=== PATIENT | male | born 1940 | race Caucasian/White ===

== ENCOUNTER 2016-07-24 15:02 | Outpatient (CLI) | payer MEDICARE, OTHER | END 2016-07-24 15:03 | disposition home or self-care (01) | DX: B35.1 Tinea unguium (principal); Z79.899 Other long term (current) drug therapy ==

== ENCOUNTER 2016-09-04 16:32 | Outpatient (CLI) | payer MEDICARE, OTHER ==
[2016-09-04 16:54] LABS: CREATININE 0.9 mg/dL (0.6-1.2)
== END 2016-09-04 16:33 | disposition home or self-care (01) ==
LOC: LAB 16:32
PROVIDERS: ATTEND Nurse Practitioner Family
DX: B35.1 Tinea unguium (principal); Z79.899 Other long term (current) drug therapy
CPT/HCPCS: 36415; 82565; 84450; 84460

== ENCOUNTER 2017-08-23 17:01 | Outpatient (CLI) | payer MEDICARE, OTHER ==
--- NOTE | 2017-08-24 07:00 | Ultrasound Report ---
EXAM: LEFT LOWER EXTREMITY VENOUS ULTRASOUND EXAM DATE: 08/23/2017 06:03 PM. CLINICAL HISTORY: SUPERFICIAL THROMBOPHLEBITIS. COMPARISON: None. TECHNIQUE: Real-time sonographic vascular imaging was performed by the product safety engineer through the lower extremity utilizing both color-flow and Doppler spectral analysis. Multiple representative personal service static diego ges were saved for review. FINDINGS: Common Femoral Vein (CFV): Normal. CFV-GSV Junction: Normal. Profunda Femoral Vein (PFV): Normal. Femoral Vein (FV) Prox: Normal. Femoral Vein (FV) Mid: Normal. Femoral Vein (FV) Dist: Normal. Popliteal Vein: Normal. Posterior Tibial Veins: Normal. Peroneal Veins: Normal. Contralateral Side CFV: Normal. Other: Thrombus in the lesser saphenous vein from popliteal area down into the calf IMPRESSION: 1. No evidence for deep venous thrombosis. 2. Thrombus in the superficial lesser saphenous vein [facility] Referring Provider Line: [phone] SITE ID: [id number]
== END 2017-08-23 17:02 | disposition home or self-care (01) ==
LOC: DI 17:01
PROVIDERS: ATTEND Family Medicine
DX: I82.812 Embolism and thrombosis of superficial veins of left lower extremity (principal)

== ENCOUNTER 2019-03-17 16:28 | Outpatient (CLI) | payer MEDICARE, OTHER ==
--- NOTE | 2019-03-19 01:03 | XRAY Report ---
Reason: PAINFUL 4TH MP JT L FOOT Procedure Date: 03/17/2019 Accession Number: [id number] / [id number] Procedure: XR - Foot 3 View LT CPT Code: Final Report FULL RESULT: EXAM: LEFT FOOT RADIOGRAPHY EXAM DATE: 03/17/2019 04:40 PM. CLINICAL HISTORY: PAINFUL 4TH MP JT L FOOT. COMPARISON: None. TECHNIQUE: 3 views. FINDINGS: The osseous structures are intact and well-aligned. No focal soft tissue swelling or demineralization is seen. No retained radiopaque foreign body is seen. IMPRESSION: No acute osseous abnormality. No radiographic abnormality in the region of the fourth metatarsophalangeal joint as clinically queried. [facility]
== END 2019-03-17 16:29 | disposition home or self-care (01) ==
LOC: DI 16:28
PROVIDERS: ATTEND Podiatrist
DX: M25.572 Pain in left ankle and joints of left foot (principal)

== ENCOUNTER 2019-09-06 18:20 | Outpatient (CLI) | payer MEDICARE, OTHER | END 2019-09-06 18:21 | disposition home or self-care (01) | LOC: COV 18:20 | PROVIDERS: ATTEND Family Medicine | DX: R05 Cough (principal); R43.9 Unspecified disturbances of smell and taste; R53.83 Other fatigue | CPT/HCPCS: 81599 ==

== ENCOUNTER 2020-07-10 09:19 | Outpatient (CLI) | payer MEDICARE, OTHER ==
[2020-07-10 09:36] LABS: BASOPHILS % (AUTO) 0.7 %; EOSINOPHILS # (AUTO) 0.6 10^3/uL (0.0-0.7); EOSINOPHILS % (AUTO) 9.8 %; HCT - HEMATOCRIT 44.9 % (42.0-52.0); HGB - HEMOGLOBIN 14.8 g/dL (14.0-18.0); LYMPHOCYTES # (AUTO) 1.9 10^3/uL (1.5-3.5); LYMPHOCYTES % (AUTO) 31.5 %; MEAN CORPUSCULAR HEMOGLOBIN 29.1 pg (27.0-31.0); MEAN CORPUSCULAR VOLUME 88.2 fL (80.0-94.0); MEAN PLATELET VOLUME 8.8 fL (7.4-11.4); MONOCYTES # (AUTO) 0.5 10^3/uL (0.0-1.0); MONOCYTES % (AUTO) 8.8 %; NEUTROPHILS # (AUTO) 2.9 10^3/uL (1.5-6.6); PLT - PLATELET COUNT 277 10^3/uL (130-450); RED BLOOD COUNT 5.09 10^6/uL (4.70-6.10); RED CELL DISTRIBUTION WIDTH 14.2 % (12.0-15.0); WHITE BLOOD COUNT 5.9 x10^3/uL (4.8-10.8)
[2020-07-10 09:56] LABS: ALBUMIN/GLOBULIN RATIO 1.3 (1.0-2.2); ALKALINE PHOSPHATASE 64 IU/L (42-121); ALT ALANINE AMINOTRANSFERASE 21 IU/L (10-60); AST ASPARTATE AMINOTRANSFERASE 21 IU/L (10-42); BILIRUBIN,TOTAL 0.9 mg/dL (0.2-1.0); BUN - BLOOD UREA NITROGEN 23 mg/dL (6-20); CARBON DIOXIDE - CO2 26 mmol/L (21-32); CHLORIDE 103 mmol/L (101-111); CHOL/HDL RATIO 5.7 (<5.0); CHOLESTEROL 273 mg/dL; GFR - MDRD 72 (>89); GLUCOSE 99 mg/dL (70-100); HDL CHOLESTEROL 48 mg/dL; LDL CHOLESTEROL,CALCULATED 193 mg/dL; POTASSIUM 4.2 mmol/L (3.5-5.0); SODIUM 140 mmol/L (135-145); TOTAL PROTEIN 7.2 g/dL (6.7-8.2); TRIGLYCERIDES 160 mg/dL; VLDL CHOLESTEROL 32 mg/dL
[2020-07-13 20:37] LABS: FREE TESTOSTERONE 51.3 pg/mL (30.0-135.0)
== END 2020-07-10 09:20 | disposition home or self-care (01) ==
LOC: LAB 09:19
PROVIDERS: ATTEND Internal Medicine
DX: E78.5 Hyperlipidemia, unspecified (principal); R53.83 Other fatigue; Z79.899 Other long term (current) drug therapy
CPT/HCPCS: 36415; 80053; 80061; 83721; 84270; 84402; 84403; 85025

== ENCOUNTER 2020-12-26 15:05 | Outpatient (CLI) | payer MEDICARE, OTHER ==
[2020-12-26 18:22] LABS: ALBUMIN 4.3 g/dL (3.2-5.5); ALBUMIN/GLOBULIN RATIO 1.3 (1.0-2.2); BILIRUBIN,TOTAL 0.6 mg/dL (0.2-1.0); CALCIUM 9.4 mg/dL (8.5-10.3); POTASSIUM 4.4 mmol/L (3.5-5.0); TOTAL PROTEIN 7.7 g/dL (6.7-8.2)
== END 2020-12-26 23:59 | disposition home or self-care (01) ==
LOC: LAB.N 15:05
PROVIDERS: ATTEND Family Medicine
DX: R03.0 Elevated blood-pressure reading, without diagnosis of hypertension (principal)
CPT/HCPCS: 36415; 80053

== ENCOUNTER 2021-03-16 08:31 | Outpatient (CLI) | payer MEDICARE, OTHER ==
[2021-03-16 08:48] LABS: BASOPHILS % (AUTO) 0.4 %; EOSINOPHILS # (AUTO) 0.5 10^3/uL (0.0-0.7); EOSINOPHILS % (AUTO) 7.4 %; HCT - HEMATOCRIT 46.3 % (42.0-52.0); HGB - HEMOGLOBIN 15.1 g/dL (14.0-18.0); LYMPHOCYTES % (AUTO) 29.1 %; MEAN CORPUSCULAR HEMOGLOBIN 28.8 pg (27.0-31.0); MEAN CORPUSCULAR HGB CONC 32.6 g/dL (32.0-36.0); MEAN CORPUSCULAR VOLUME 88.4 fL (80.0-94.0); MEAN PLATELET VOLUME 8.6 fL (7.4-11.4); MONOCYTES # (AUTO) 0.7 10^3/uL (0.0-1.0); MONOCYTES % (AUTO) 10.2 %; NEUTROPHILS # (AUTO) 3.6 10^3/uL (1.5-6.6); NEUTROPHILS % (AUTO) 52.8 %; PLT - PLATELET COUNT 311 10^3/uL (130-450); RED BLOOD COUNT 5.24 10^6/uL (4.70-6.10); WHITE BLOOD COUNT 6.9 x10^3/uL (4.8-10.8)
[2021-03-16 09:07] LABS: CHOL/HDL RATIO 6.2 (<5.0); CHOLESTEROL 262 mg/dL; HDL CHOLESTEROL 42 mg/dL; LDL CHOLESTEROL,CALCULATED 178 mg/dL; LDL/HDL RATIO 4.2 (<3.6); TRIGLYCERIDES 209 mg/dL; VLDL CHOLESTEROL 42 mg/dL
== END 2021-03-16 08:32 | disposition home or self-care (01) ==
LOC: LAB 08:31
PROVIDERS: ATTEND Internal Medicine
DX: E78.5 Hyperlipidemia, unspecified (principal); Z79.899 Other long term (current) drug therapy
CPT/HCPCS: 36415; 80061; 83721; 85025

== ENCOUNTER 2022-01-27 13:58 | Emergency (ER) | payer MEDICARE, OTHER ==
--- NOTE | 2022-01-27 14:16 | ED Physician Documentation ---
PD HPI HEENT - Stated complaint Stated Complaint: DIZZINESS - Chief complaint Chief Complaint: Neuro - History obtained from History obtained from: Patient - History of Present Illness Timing - onset: How many days ago (2) Timing - duration: Days (2) Timing - details: Gradual onset, Intermittant (noted with lying flat and with positional change (getting up, turning head). Feels okay once standing. Slight off balance when first standing, but then improved. No associated vision changes, headache, focal weakness, URI, congestion.) Location: Other (vertigo with head movement and position.) Associated symptoms: No: Fever, Congestion, Headache, Cough Similar symptoms before: Has not had sx before Recently seen: Not recently seen Review of Systems Constitutional: denies: Fever, Chills Eyes: denies: Loss of vision, Decreased vision Ears: denies: Loss of hearing, Tinnitus/ringing Nose: denies: Rhinorrhea / runny nose, Congestion Throat: denies: Sore throat Respiratory: denies: Cough Skin: denies: Rash, Lesions Neurologic: denies: Focal weakness, Numbness, Altered mental status PD PAST MEDICAL HISTORY - Past Medical History Cardiovascular: High cholesterol Respiratory: None Endocrine/Autoimmune: None GI: None : Incontinence HEENT: Chronic hearing loss Musculoskeletal: Osteoarthritis Derm: None, Eczema - Past Surgical History Past Surgical History: Yes General: Appendectomy, Colonoscopy Ortho: Rotator cuff repair, Arthroscopic surgery HEENT: Tonsil/Adenoidectomy - Present Medications Home Medications: Ambulatory Orders Medication Instructions Recorded Confirmed Meclizine HCl [Motion Sickness] 25 mg PO Q6H PRN #30 tablet 01/27/22 Multivitamin with Minerals 1 each PO DAILY 01/27/22 01/27/22 [Multivitamins with Minerals] [place]-3/Dha/Epa/Fish Oil [Fish Oil 1 each PO DAILY 01/27/22 01/27/22 1,000 mg Softgel] dexAMETHasone [Decadron] 4 mg PO DAILY #5 tablet 01/27/22 - Allergies Allergies/Adverse Reactions: Allergies Allergy/AdvReac Type Severity Reaction Status Date / Time No Known Drug Allergies Allergy Verified 01/27/22 14:06 - Social History Does the pt smoke?: No Smoking Status: Never smoker Does the pt drink ETOH?: No Does the pt have substance abuse?: No - Immunizations Immunizations are current?: Yes PD ED PE NORMAL - Vitals Vital signs reviewed: Yes - General General: Alert and oriented X 3, No acute distress, Well developed/nourished - HEENT HEENT: Atraumatic, PERRL, EOMI (no nystagmus at rest. Mario-Halpike created mild brief vertigo. Supine roll test to the right created notable vertigo with brief nystagmus. This dampened quickly. ), Ears normal (hearing aids in both ears. Canals appear normal. ), Moist mucous membranes, Pharynx benign - Neck Neck: Supple, no meningeal sign, No adenopathy, No bruit - Cardiac Cardiac: RRR, No murmur - Respiratory Respiratory: Clear bilaterally - Abdomen Abdomen: Soft, Non tender - Back Back: No CVA TTP - Derm Derm: Normal color, Warm and dry - Neuro Neuro: Alert and oriented X 3, physiology teacher 2-12 intact, No motor deficit, No sensory deficit, Normal speech, Other ([place]-Halpike did not provoke distinct vertigo but the supine roll test did to the right. No persistent nystagmus to attempt HINTS. Normal hearing finger rub. ) Eye Opening: Spontaneous Motor: Obeys Commands Verbal: Oriented GCS Score: 15 Results - Vitals Vitals: Vital Signs - 24 hr 01/27/22 01/27/22 01/27/22 14:07 14:10 15:48 Temperature 36.2 C L 36.5 C 36.5 C Heart Rate 49 L 49 L 56 L Respiratory 16 16 16 Rate Blood Pressure 147/71 H 147/71 H 130/70 O2 Saturation 97 97 98 Oxygen O2 Source Room air - Labs Labs: Laboratory Tests 01/27/22 01/27/22 15:00 15:00 WBC 6.7 RBC 4.93 Hgb 14.4 Hct 43.2 MCV 87.6 MCH 29.2 MCHC 33.3 RDW 14.3 Plt Count 274 MPV 8.7 Neut # (Auto) 3.8 Lymph # (Auto) 1.9 [facility] # (Auto) 0.5 Eos # (Auto) 0.4 Baso # (Auto) 0.0 Absolute Nucleated RBC 0.00 Nucleated RBC % 0.0 Sodium 139 Potassium 4.3 Chloride 103 Carbon Dioxide 28 Anion Gap 8.0 BUN 19 Creatinine 0.9 Estimated GFR (MDRD) 81 L Glucose 92 Calcium 9.0 Magnesium 2.3 Total Bilirubin 0.6 AST 21 ALT 22 Alkaline Phosphatase 59 Total Protein 6.9 Albumin 3.9 Globulin 3.0 Albumin/Globulin Ratio 1.3 Lipase 31 PD MEDICAL DECISION MAKING - ED course Complexity details: reviewed results, re-evaluated patient (no focal deficits and has supine roll test provoke vertigo, c/w peripheral cause. ), considered differential (Positional vertigo for couple of days. No other focal neurologic symptoms no visual change. He is positive on the supine roll test but not the Mario-Hallpike. Consistent with BPPV or labyrinthitis.), d/w patient Departure - Departure Disposition: Home, Self Care Clinical Impression: Peripheral vertigo Qualifiers: Laterality: right Qualified Code(s): H81.391 - Other peripheral vertigo, right ear Condition: Stable Record reviewed to determine appropriate education?: Yes Instructions: ED Vertigo Unspecified Follow-Up: [facility] [Provider Group] Prescriptions: dexAMETHasone [Decadron] 4 mg PO DAILY #5 tablet Meclizine HCl [Motion Sickness] 25 mg PO Q6H PRN #30 tablet PRN Reason: Vertigo Comments: Your symptoms are consistent with a inner ear/peripheral cause of vertigo. Your blood count, blood sugar and electrolytes are good on blood testing. I would suggest trying some anti-inflammatory daily for the next several days and also meclizine motion sickness medicine 2-3 times daily over the next 3 to 5 days as well. This should help with symptoms and decrease the process. Avoid positions and activities that bother you and get up and turn slowly. Recheck if not improving well over the next couple of days. If persistent symptoms, your primary care could potentially initiate some physical therapy maneuvers/referral to help with some of the positional vertigo symptoms. Commonly this should improve with the motion sickness medicine and anti- inflammatories as there can be fluid congestion or inflammation causing the symptoms as well. Follow-up or return to the ER if you have other associated symptoms develop such as vision changes, trouble speaking, localized weakness, other concerns. I sent your scripts to the [facility] pharmacy. Discharge Date/Time: 01/27/22 15:48
[2022-01-27] MEDS ORDERED: MECLIZINE 12.5 MG TABLET PO STA (14:53)
[2022-01-27 15:04] LABS: BASOPHILS % (AUTO) 0.4 %; EOSINOPHILS # (AUTO) 0.4 10^3/uL (0.0-0.7); EOSINOPHILS % (AUTO) 5.4 %; HCT - HEMATOCRIT 43.2 % (42.0-52.0); HGB - HEMOGLOBIN 14.4 g/dL (14.0-18.0); LYMPHOCYTES # (AUTO) 1.9 10^3/uL (1.5-3.5); LYMPHOCYTES % (AUTO) 29.1 %; MEAN CORPUSCULAR HEMOGLOBIN 29.2 pg (27.0-31.0); MEAN CORPUSCULAR HGB CONC 33.3 g/dL (32.0-36.0); MEAN CORPUSCULAR VOLUME 87.6 fL (80.0-94.0); MEAN PLATELET VOLUME 8.7 fL (7.4-11.4); MONOCYTES # (AUTO) 0.5 10^3/uL (0.0-1.0); MONOCYTES % (AUTO) 7.8 %; NEUTROPHILS # (AUTO) 3.8 10^3/uL (1.5-6.6); NEUTROPHILS % (AUTO) 57.2 %; PLT - PLATELET COUNT 274 10^3/uL (130-450); RED BLOOD COUNT 4.93 10^6/uL (4.70-6.10); RED CELL DISTRIBUTION WIDTH 14.3 % (12.0-15.0); WHITE BLOOD COUNT 6.7 x10^3/uL (4.8-10.8)
[2022-01-27 15:17] LABS: ALBUMIN 3.9 g/dL (3.2-5.5); ALBUMIN/GLOBULIN RATIO 1.3 (1.0-2.2); BILIRUBIN,TOTAL 0.6 mg/dL (0.2-1.0); CREATININE 0.9 mg/dL (0.6-1.2); MAGNESIUM 2.3 mg/dL (1.7-2.8); POTASSIUM 4.3 mmol/L (3.5-5.0); TOTAL PROTEIN 6.9 g/dL (6.7-8.2)
[2022-01-27] MEDS ORDERED: DEXAMETHASONE 10 MG/ML VIAL PO STA (15:31)
[2022-01-27] MEDS ORDERED: CHERRY SYRUP 10 ML UDC PO ONE (15:31)
[2022-01-27 15:49] VITALS: BP 130/70
== END 2022-01-27 15:48 | disposition home or self-care (01) ==
LOC: ED 13:58
DX: H81.391 Other peripheral vertigo, right ear (principal)
CPT/HCPCS: 36415; 80053; 83690; 83735; 85025; 99282; 99283; A9270

== ENCOUNTER 2022-09-16 15:18 | Emergency (ER) | payer MEDICARE, OTHER ==
--- NOTE | 2022-09-16 15:34 | ED Physician Documentation ---
PD HPI CHEST PAIN - Stated complaint Stated Complaint: CHEST PX - History obtained from History obtained from: Patient - Additional information Additional information: 82-year-old gentleman with no history of heart problems. He had chest pain most of the morning 2 mornings ago. It was a substernal chest pain and tightness. It is gone away since. It was not associate with shortness of breath, nausea, dizziness, or sweats. Other than his age he really does not have any risk factors for coronary issues. No cough. No recent travel. No pedal edema or calf pain. No radiation to the back. He is pain-free now. PD PAST MEDICAL HISTORY - Past Medical History Cardiovascular: High cholesterol Respiratory: None Endocrine/Autoimmune: None GI: None : Incontinence HEENT: Chronic hearing loss Musculoskeletal: Osteoarthritis Derm: None, Eczema - Past Surgical History Past Surgical History: Yes General: Appendectomy, Colonoscopy Ortho: Rotator cuff repair, Arthroscopic surgery HEENT: Tonsil/Adenoidectomy - Present Medications Home Medications: Ambulatory Orders Medication Instructions Recorded Confirmed Multivitamin with Minerals 1 each PO DAILY 01/27/22 09/16/22 [Multivitamins with Minerals] [place]-3/Dha/Epa/Fish Oil [Fish Oil 1 each PO DAILY 01/27/22 09/16/22 1,000 mg Softgel] - Allergies Allergies/Adverse Reactions: Allergies Allergy/AdvReac Type Severity Reaction Status Date / Time No Known Drug Allergies Allergy Verified 09/16/22 15:33 - Social History Does the pt smoke?: No Smoking Status: Never smoker Does the pt drink ETOH?: No Does the pt have substance abuse?: No - Immunizations Immunizations are current?: Yes PD ED PE NORMAL - Vitals Vital signs reviewed: Yes - General General: Alert and oriented X 3, No acute distress - HEENT HEENT: PERRL, EOMI - Neck Neck: Supple, no meningeal sign, No bony TTP - Cardiac Cardiac: No murmur, Other (Occasional extrasystoles corresponding to PVCs in the monitor) - Respiratory Respiratory: No respiratory distress, Clear bilaterally - Abdomen Abdomen: Non tender - Extremities Extremities: No edema, No calf tenderness / cord - Neuro Neuro: Alert and oriented X 3, Normal speech Results - Vitals Vitals: Vital Signs - 24 hr 09/16/22 15:30 Temperature 36.6 C Heart Rate 87 Respiratory 16 Rate Blood Pressure 148/82 H O2 Saturation 98 Oxygen O2 Source Room air - EKG (time done) 1526 EKG releavant findings:: EKG personally interpreted by author of this note. Relevant findings are: Rate: Rate (enter#) (90) Rhythm: NSR (w pvcs) Intervals: Prolonged MN, Other (lafb) Ischemia: Non specific changes. No: ST elevation c/w ischemia, ST depression - Labs Labs: Laboratory Tests 09/16/22 09/16/22 09/16/22 15:40 15:40 15:40 WBC 7.4 RBC 5.20 Hgb 14.3 Hct 44.1 MCV 84.8 MCH 27.5 MCHC 32.4 RDW 14.4 Plt Count 326 MPV 8.7 Neut # (Auto) 5.1 Lymph # (Auto) 1.5 [place] # (Auto) 0.5 Eos # (Auto) 0.3 Baso # (Auto) 0.0 Absolute Nucleated RBC 0.00 Nucleated RBC % 0.0 Sodium 141 Potassium 3.9 Chloride 106 Carbon Dioxide 25 Anion Gap 10.0 BUN 19 Creatinine 1.0 Estimated GFR (MDRD) 71 L Glucose 112 H Calcium 9.2 Total Bilirubin 0.4 AST 22 ALT 20 Alkaline Phosphatase 64 Troponin I High Sens 7.0 Total Protein 7.1 Albumin 3.7 Globulin 3.4 Albumin/Globulin Ratio 1.1 Lipase 32 - Rads (name of study) 1v cxr Relevant Findings:: Final report received, EMP independent interpretation of test PD Medical Decision Making - ED course ED course: 82-year-old gentleman who had chest pain 2 days ago but has been resolved since then with negative biomarkers and EKG. Heart score 3. Nothing in the history or physical to suggest dissection, PE, pneumonia. Departure - Departure Disposition: Home, Self Care Clinical Impression: Chest pain Condition: Good Record reviewed to determine appropriate education?: Yes Instructions: ED Chest Pain NonCardiac Comments: Return immediately if you develop develop recurrent chest pain. Otherwise follow-up with your primary care physician and discuss stress testing.
[2022-09-16 15:46] LABS: BASOPHILS % (AUTO) 0.4 %; EOSINOPHILS # (AUTO) 0.3 10^3/uL (0.0-0.7); EOSINOPHILS % (AUTO) 3.5 %; HCT - HEMATOCRIT 44.1 % (42.0-52.0); HGB - HEMOGLOBIN 14.3 g/dL (14.0-18.0); LYMPHOCYTES # (AUTO) 1.5 10^3/uL (1.5-3.5); LYMPHOCYTES % (AUTO) 19.6 %; MEAN CORPUSCULAR HEMOGLOBIN 27.5 pg (27.0-31.0); MEAN CORPUSCULAR HGB CONC 32.4 g/dL (32.0-36.0); MEAN CORPUSCULAR VOLUME 84.8 fL (80.0-94.0); MEAN PLATELET VOLUME 8.7 fL (7.4-11.4); MONOCYTES # (AUTO) 0.5 10^3/uL (0.0-1.0); MONOCYTES % (AUTO) 7.3 %; NEUTROPHILS # (AUTO) 5.1 10^3/uL (1.5-6.6); NEUTROPHILS % (AUTO) 69.1 %; PLT - PLATELET COUNT 326 10^3/uL (130-450); RED CELL DISTRIBUTION WIDTH 14.4 % (12.0-15.0); WHITE BLOOD COUNT 7.4 x10^3/uL (4.8-10.8)
--- NOTE | 2022-09-16 15:52 | XRAY Report ---
PROCEDURE: Chest 1 View X-Ray INDICATIONS: Chest Pain TECHNIQUE: One view of the chest was acquired. COMPARISON: None. FINDINGS: Surgical changes and devices: None. Lungs and pleura: No pleural effusions or pneumothorax. Lungs are clear. Mediastinum: Mediastinal contours appear normal. Heart size is normal. Bones and chest wall: No suspicious bony lesions. Overlying soft tissues appear unremarkable. IMPRESSION: No acute cardiopulmonary process. Reviewed by: Kwasi Wilkerson on 09/16/2022 2:51 PM AKDT Approved by: Kwasi Wilkerson on 09/16/2022 2:51 PM AKDT Station ID: [id number]
[2022-09-16 15:59] LABS: ALBUMIN 3.7 g/dL (3.2-5.5); ALBUMIN/GLOBULIN RATIO 1.1 (1.0-2.2); BILIRUBIN,TOTAL 0.4 mg/dL (0.2-1.0); CALCIUM 9.2 mg/dL (8.5-10.3); POTASSIUM 3.9 mmol/L (3.5-5.0); TOTAL PROTEIN 7.1 g/dL (6.7-8.2)
[2022-09-16 16:23] VITALS: BP 120/77
== END 2022-09-16 16:27 | disposition home or self-care (01) ==
LOC: ED 15:18
DX: R07.9 Chest pain, unspecified (principal)
CPT/HCPCS: 36415; 80053; 83690; 84484; 85025; 93005; 99284

== ENCOUNTER 2022-12-22 10:02 | Outpatient (CLI) | payer MEDICARE, OTHER ==
--- NOTE | 2022-12-22 11:43 | Ultrasound Report ---
PROCEDURE: Abdomen Limited INDICATIONS: DIASTISIS RECTI TECHNIQUE: Real-time focused scanning was performed of the abdomen, with image documentation. COMPARISONS: None. FINDINGS: No focal abdominal wall fascial defect. No hernia at rest or during Valsalva maneuver. Per report, di astases recti is present. This is best demonstrated by cross-sectional imaging. IMPRESSION: 1. No sonographic evidence of ventral abdominal wall midline hernia. Reviewed by: Massiel Sood MD on 12/22/2022 11:41 AM PDT Approved by: Massiel Sood MD on 12/22/2022 11:41 AM PDT Station ID: [id number]
== END 2022-12-22 10:03 | disposition home or self-care (01) ==
LOC: DI 10:02
PROVIDERS: ATTEND Nurse Practitioner
DX: M62.08 Separation of muscle (nontraumatic), other site (principal)

== ENCOUNTER 2023-01-27 09:45 | Outpatient (CLI) | payer MEDICARE, OTHER ==
[2023-01-27 10:02] LABS: BASOPHILS % (AUTO) 0.5 %; EOSINOPHILS # (AUTO) 0.3 10^3/uL (0.0-0.7); EOSINOPHILS % (AUTO) 5.7 %; HCT - HEMATOCRIT 45.1 % (42.0-52.0); HGB - HEMOGLOBIN 14.7 g/dL (14.0-18.0); LYMPHOCYTES # (AUTO) 1.7 10^3/uL (1.5-3.5); MEAN CORPUSCULAR HEMOGLOBIN 28.3 pg (27.0-31.0); MEAN CORPUSCULAR HGB CONC 32.6 g/dL (32.0-36.0); MEAN CORPUSCULAR VOLUME 86.7 fL (80.0-94.0); MEAN PLATELET VOLUME 8.5 fL (7.4-11.4); MONOCYTES # (AUTO) 0.6 10^3/uL (0.0-1.0); MONOCYTES % (AUTO) 9.6 %; NEUTROPHILS # (AUTO) 3.3 10^3/uL (1.5-6.6); PLT - PLATELET COUNT 289 10^3/uL (130-450); RED CELL DISTRIBUTION WIDTH 14.5 % (12.0-15.0)
[2023-01-27 10:17] LABS: ALBUMIN 4.3 g/dL (3.2-5.5); ALBUMIN/GLOBULIN RATIO 1.6 (1.0-2.2); ALKALINE PHOSPHATASE 67 IU/L (42-121); ALT ALANINE AMINOTRANSFERASE 17 IU/L (10-60); AST ASPARTATE AMINOTRANSFERASE 17 IU/L (10-42); BILIRUBIN,TOTAL 0.5 mg/dL (0.2-1.0); BUN - BLOOD UREA NITROGEN 16 mg/dL (6-20); CALCIUM 9.4 mg/dL (8.5-10.3); CARBON DIOXIDE - CO2 30 mmol/L (21-32); CHLORIDE 104 mmol/L (101-111); CHOL/HDL RATIO 4.9 (<5.0); CHOLESTEROL 244 mg/dL; CREATININE 1.1 mg/dL (0.6-1.3); GFR - MDRD 64 (>89); GLUCOSE 93 mg/dL (74-104); HDL CHOLESTEROL 50 mg/dL; LDL CHOLESTEROL,CALCULATED 164 mg/dL; LDL/HDL RATIO 3.3 (<3.6); POTASSIUM 4.4 mmol/L (3.5-4.5); SODIUM 139 mmol/L (135-145); TRIGLYCERIDES 150 mg/dL (48-352); VLDL CHOLESTEROL 30 mg/dL
[2023-01-27 10:31] LABS: THYROID STIMULATING HORMONE 4.19 uIU/mL (0.34-5.60)
[2023-01-27 12:56] LABS: ESTIMATED AVERAGE GLUCOSE 123 mg/dL (70-100); HEMOGLOBIN A1c% 5.9 % (4.27-6.07)
== END 2023-01-27 09:46 | disposition home or self-care (01) ==
LOC: LAB 09:45
PROVIDERS: ATTEND Nurse Practitioner
DX: E78.5 Hyperlipidemia, unspecified (principal); R53.83 Other fatigue; R73.03 Prediabetes
CPT/HCPCS: 36415; 80053; 80061; 82607; 83036; 83721; 84443; 85025

== ENCOUNTER 2023-03-16 07:50 | Outpatient (CLI) | payer MEDICARE, OTHER ==
--- NOTE | 2023-03-16 08:03 | CARDIAC PROCEDURE NOTE ---
Stress Test Report Service Date: 03/16/23 Service Time: 08:00 Ordering Provider: Brunilda Blanchard ARNP Indication for Test: Assess chest discomfort. Significant Medical History: Sukhdev is referred for a treadmill stress echocardiogram, to evaluate intermittent episodes of lower chest/epigastric discomfort, one of which was significant enough to prompt an Emergency Department visit here at [facility], where troponin was negative. His EKG was notable for first-degree AV block, left anterior fascicular block and two PVCs on the 12-second recording, but no Q waves or STT abnormalities. He was subsequently started on omeprazole for presumed GI origin of the pain. He says that the episodes may have become less frequent thereafter, though they persist intermittently. His discomfort typically occurs at night upon lying down to go to sleep. He does not see any correlation with diet. He remains very active, walking on his treadmill at home periodically, walking his dog every day for at [place] and vigorous activities such as splitting and stacking firewood. His stamina remains excellent, as he is able to work for up to 2 hours before resting. He has not had exertional chest discomfort, unexpected shortness of breath, nausea or diaphoresis. In the past he has been noted to have bradycardia, occasional orthostatic vital signs and vertigo, but he denies recent palpitations or lightheadedness. He is under evaluation for possible sleep apnea. In January he had a fasting lipid panel revealing Total Cholesterol 244, LDL-c 164, HDL-c 50 and TG 150. Cardiac Risk Factors: Positive for hypertension (treated for approximately 6 months), hyperlipidemia (not treated) and "pre-diabetes"; no history of tobacco smoking ever and no known family history of coronary heart disease. Type of Stress Test: ETT with Echocardiography Procedure: -Exercise Treadmill Test- After signing informed consent, the patient underwent echo imaging at rest and then performed treadmill exercise using a Martinez protocol. The patient exercised for 8 minutes 51 seconds and achieved a peak heart rate of 125 (91 percent predicted maximum heart rate for age), and an estimated workload of 10.2 METS. The test was terminated due to fatigue/shortness of breath. Resting heart rate: 56 Peak heart rate: 125 Normal response to exercise. Resting BP: 168/83 Peak BP: 187/68 Hypertensive at rest with normal BP response to exercise. Rhythm during exercise: Frequent multiform PVCs, occurring as singlets, occasional couplets and rare triplets throughout exercise; total PVC count 147. Symptoms: NO chest/epigastric discomfort or unexpected shortness of breath was reported. EKG at rest showed sinus bradycardia with first-degree AV block and left ante rior fascicular block pattern; no resting q waves or ST-T abnormalities. EKG at peak stress showed no ischemia by EKG criteria. In Recovery heart rate and blood pressure rapidly/normally decreased to wards/below resting levels (HR 76, BP 123/56 at 6:38). PVC frequency decreased in Recovery as well. Echo imaging, performed at rest and with stress, will be reported separately. IManuel MD, was present throughout this treadmill stress study and supervised it in its entirety. Summary: 1) Exercise tolerance markedly above average for age and sex as evidenced by CHANNING of -41%. 2) Abnormal resting EKG, though with interpretable ST-T pattern. 3) Adequate level of exercise was achieved on this treadmill stress test. 4) Normal BP response to exercise, though BP was elevated at rest (did not take AM amlodipine today). 5) No ischemic changes by EKG criteria were seen at peak stress. 6) Echo image interpretation reveals normal left ventricular size and systolic function, with appropriate hyperdynamic augmentation of all segments with exercise, indicating no evidence of prior infarct or inducible ischemia. On screening study mild concentric LVH and mild aortic and tricuspid regurgitation were noted, without elevation of estimated pulmonary artery systolic pressure. See separate report for more details. Conclusions and Recommendations: 1) Highly reassuring treadmill stress echocardiogram results, with outstanding exercise capacity and no symptom, EKG or echocardiographic evidence of inducible ischemia. 2) Significance of multiform PVCs not entirely clear; likely related to LVH and other mild conduction system disease (first degree AV block and LAFB). Further workup probably not indicated unless symptoms (palpitations, lightheadedness, etc) evolve. 3) He is encouraged to continue to track home BPs in the next couple of weeks prior to planned follow up with his provider, Ms Blanchard, to assure adequate level of BP control has been achieved.
== END 2023-03-16 07:51 | disposition home or self-care (01) ==
LOC: DI 07:50
PROVIDERS: ATTEND Nurse Practitioner
DX: R07.9 Chest pain, unspecified (principal); I10 Essential (primary) hypertension; E78.5 Hyperlipidemia, unspecified; R73.03 Prediabetes
CPT/HCPCS: 93350

== ENCOUNTER 2023-03-31 10:48 | Outpatient (CLI) | payer MEDICARE, OTHER ==
--- NOTE | 2023-03-31 11:33 | Sleep Patient Instructions ---
Sleep Center Visit Summary - Patient Visit Information Reason for Visit: Initial consult for evaluation of sleep disordered breathing and other sleep issues. - Patient Instructions Instructions Attached: Sleep Study Additional Instructions: You will be completing a sleep study, either an in-lab polysomnography (PSG) or home sleep study (HST). You will follow-up in the sleep care office after the sleep study is completed to hear the results and talk about therapy, if needed. You will be called by our office staff to schedule this appointment, but you may contact us with any questions. - Clinic Information Contact: [facility] [address] [place] [address] [email or web address] T: [phone]
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
[2023-03-31 11:48] VITALS: BP 116/60; O2SAT 95
== END 2023-03-31 10:49 | disposition home or self-care (01) ==
LOC: SC 10:48
PROVIDERS: ATTEND Nurse Practitioner Family
DX: R53.83 Other fatigue (principal); G47.8 Other sleep disorders; R06.83 Snoring; R06.81 Apnea, not elsewhere classified; I10 Essential (primary) hypertension; E66.3 Overweight; Z68.27 Body mass index [BMI] 27.0-27.9, adult
CPT/HCPCS: 99203; G0463; 99212

== ENCOUNTER 2023-04-23 19:21 | Outpatient (CLI) | payer MEDICARE, OTHER | END 2023-04-23 19:22 | disposition home or self-care (01) | LOC: SC 19:21 | PROVIDERS: ATTEND Nurse Practitioner Family | DX: G47.61 Periodic limb movement disorder (principal) | CPT/HCPCS: 95810 ==

== ENCOUNTER 2023-05-12 16:14 | Emergency (ER) | payer MEDICARE, OTHER ==
[2023-05-12] MEDS ORDERED: ACETAMINOPHEN 325 MG TABLET PO STA (18:10)
[2023-05-12] MEDS ORDERED: oxyCODONE 5 MG TABLET PO STA (18:10)
--- NOTE | 2023-05-12 18:10 | ED Physician Documentation ---
PD HPI BACK PAIN - Stated complaint Stated Complaint: FALL/BACK PX - Chief complaint Chief Complaint: Back Pain - Additional information Additional information: 82-year-old male presents emergency department for back pain. Patient said that this morning as he was getting out of bed he was laying too close to the edge of the bed and actually rolled onto his back. He has chronic back pain and feels like this has been reexacerbated. 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 He is not on blood thinners, he did not hit his head he has had no loss of consciousness no nausea or vomiting since the fall. PD PAST MEDICAL HISTORY - Past Medical History Past Medical History: Yes Cardiovascular: High cholesterol Respiratory: None Endocrine/Autoimmune: None GI: None : Incontinence HEENT: Chronic hearing loss Musculoskeletal: Osteoarthritis Derm: None, Eczema - Past Surgical History Past Surgical History: Yes General: Appendectomy, Colonoscopy Ortho: Rotator cuff repair, Arthroscopic surgery HEENT: Tonsil/Adenoidectomy - Present Medications Home Medications: Ambulatory Orders Medication Instructions Recorded Confirmed Multivitamin with Minerals 1 each PO DAILY 01/27/22 03/31/23 [Multivitamins with Minerals] [place]-3/Dha/Epa/Fish Oil [Fish Oil 1 each PO DAILY 01/27/22 03/31/23 1,000 mg Softgel] Cholecalciferol (Vitamin D3) See Rx Instructions .ROUTE .COMPLEX 03/31/23 03/31/23 [Vitamin D3] Cyanocobalamin (Vitamin B-12) See Rx Instructions .ROUTE .COMPLEX 03/31/23 03/31/23 [Vitamin B12] Omeprazole See Rx Instructions .ROUTE .COMPLEX 03/31/23 03/31/23 Terbinafine [Lamisil] See Rx Instructions .ROUTE .COMPLEX 03/31/23 03/31/23 amLODIPine [Norvasc] See Rx Instructions .ROUTE .COMPLEX 03/31/23 03/31/23 - Allergies Allergies/Adverse Reactions: Allergies Allergy/AdvReac Type Severity Reaction Status Date / Time No Known Drug Allergies Allergy Verified 05/12/23 16:18 - Social History Does the pt smoke?: No Smoking Status: Never smoker Does the pt drink ETOH?: No Does the pt have substance abuse?: No - Immunizations Immunizations are current?: Yes PD ED PE NORMAL - Vitals Vital signs reviewed: Yes - General General: Alert and oriented X 3, No acute distress, Well developed/nourished - HEENT HEENT: Atraumatic, PERRL, EOMI - Neck Neck: No bony TTP - Respiratory Respiratory: No respiratory distress, Clear bilaterally - Abdomen Abdomen: Normal bowel sounds, Soft, Non tender - Back Back: No CVA TTP, No spinal TTP, Other - Free text exam Free text exam: Generalized pain and tenderness with palpation to his mid upper back bilaterally. No spinal process tenderness Results - Vitals Vitals: Vital Signs - 24 hr 05/12/23 05/12/23 16:18 18:46 Temperature 36.8 C Heart Rate 90 88 Respiratory 16 16 Rate Blood Pressure 140/88 H 142/86 H O2 Saturation 96 99 Oxygen O2 Source Room air PD Medical Decision Making - ED course ED course: 82-year-old male presents emergency department for upper back pain patient reports that he has chronic back pain and feels like he has been reexacerbated with the fall onto the ground today. We discussed plain films to his upper back but he said that he does not believe there is any fracture he just wanted to know if it was safe to take any additional Tylenol or ibuprofen after taking Excedrin today. Patient was told to not take Excedrin for back pain that this is should be strictly used for migraines and was told it is okay to take an additional 650 mg of Tylenol if he is only taken 1 Excedrin pill today. Patient was offered plain films of his upper back but he said that he does not believe there is any fractures at this time and said that he wanted to hold off, we discussed the possibility of doing a CT scan for more accurate imaging but patient was also informed that with this he Dr. Be transferred to another facility as our current CT is unfortunately not working. Patient declined he said that he feels safe for discharge he seen ambulatory and stable on his feet he said that his has a lidocaine patch at home that he was can have her put on this back and said that he was recently given a prescription of opioids for recent dental procedure he had done and was going to pick up truck driver at [facility] tomorrow. He was given strict return precautions and told to follow-up with his primary care provider for possible physical therapy referral and further evaluation of his acute on chronic back pain. Departure - Departure Disposition: 01 Home, Self Care Clinical Impression: Back pain Qualifiers: Back pain location: thoracic back pain Chronicity: acute Back pain laterality: bilateral Qualified Code(s): M54.6 - Pain in thoracic spine Fall from bed Qualifiers: Encounter type: initial encounter Qualified Code(s): W06.XXXA - Fall from bed, initial encounter Instructions: ED Sprain Strain Lumbar Comments: Thank you for trusting us with your care and thank you for your patience. We offered to do some x-rays of your back pain but you opted out of doing this we also offered doing a possible CT scan but unfortunately her CT scan is down at this time and we are not able to complete this here in house would have to send you to another hospital for this. We have given you some Tylenol here for your back pain at home you can also take a lidocaine patch that you said that you have at home for your back pain as well. Do 20 minutes of ice to that spot that is the most tender and continue to do some gentle range of motion exercises to help with your recovery from your back strain. Please come back to the emergency department for having any shortness of breath, incontinence of stool or urine, worsening more severe pain, dizziness, or any other concerning symptoms. Patient very careful to not fall going home in these cold weather conditions. Discharge Date/Time: 05/12/23 18:47
[2023-05-12 18:52] VITALS: BP 142/86; O2SAT 99
== END 2023-05-12 18:47 | disposition home or self-care (01) ==
LOC: ED 16:14
DX: S29.9XXA Unspecified injury of thorax, initial encounter (principal); W06.XXXA Fall from bed, initial encounter; G89.29 Other chronic pain
CPT/HCPCS: 99282; 99283; A9270

== ENCOUNTER 2023-05-16 00:08 | Emergency (ER) | payer MEDICARE, OTHER ==
--- NOTE | 2023-05-16 02:03 | XRAY Report ---
PROCEDURE: Wrist 3+V LT INDICATIONS: GLF'injured L wrist TECHNIQUE: 4 views of the wrist were acquired. COMPARISON: None. FINDINGS: Bones: No fractures or dislocations. No suspicious bony lesions. Moderate degenerative osteoarthrit ic change at the base of the first metacarpal as it articulates against the trapezium and at the radi ocarpal articulation and several of the intercarpal joints. Soft tissues: No suspicious soft tissue calcifications or masses. IMPRESSION: No acute bony abnormality. Moderate degenerative osteoarthritis. Reviewed by: Aubrey Phoenix MD on 05/16/2023 2:02 AM PST Approved by: Aubrey Phoenix MD on 05/16/2023 2:02 AM PST Station ID: [id number]
--- NOTE | 2023-05-16 02:52 | ED Physician Documentation ---
PD HPI UPPER EXT INJURY - Stated complaint Stated Complaint: FELL/L HAND INJ - Chief complaint Chief Complaint: Trauma Ext - History obtained from History obtained from: Patient - Additonal information Additional information: HPI from patient. Patient says he slipped and fell on ice in his driveway. This occurred at approximately 2 PM today. He fell backwards onto buttocks and outstretched LUE. His only c/o is left wrist pain which has slowly but steadily been worsening since the injury. Denies back pain, neck pain. Denies LOC. He is right hand dominant. Pain in left wrist is worse with movement, palpation. Denies weakness, numbness. He does not take any blood thinning medications. PD PAST MEDICAL HISTORY - Past Medical History Past Medical History: Yes Cardiovascular: High cholesterol Respiratory: None Endocrine/Autoimmune: None GI: None : Incontinence HEENT: Chronic hearing loss Musculoskeletal: Osteoarthritis Derm: None, Eczema - Past Surgical History Past Surgical History: Yes General: Appendectomy, Colonoscopy Ortho: Rotator cuff repair, Arthroscopic surgery HEENT: Tonsil/Adenoidectomy - Present Medications Home Medications: Ambulatory Orders Medication Instructions Recorded Confirmed Multivitamin with Minerals 1 each PO DAILY 01/27/22 05/16/23 [Multivitamins with Minerals] [place]-3/Dha/Epa/Fish Oil [Fish Oil 1 each PO DAILY 01/27/22 05/16/23 1,000 mg Softgel] Cholecalciferol (Vitamin D3) See Rx Instructions .ROUTE .COMPLEX 03/31/23 05/16/23 [Vitamin D3] Cyanocobalamin (Vitamin B-12) See Rx Instructions .ROUTE .COMPLEX 03/31/23 05/16/23 [Vitamin B12] Omeprazole See Rx Instructions .ROUTE .COMPLEX 03/31/23 05/16/23 Terbinafine [Lamisil] See Rx Instructions .ROUTE .COMPLEX 03/31/23 05/16/23 amLODIPine [Norvasc] See Rx Instructions .ROUTE .COMPLEX 03/31/23 05/16/23 HYDROcod/ACETAM 5/325 [[place] 5/325] 1 - 2 tablet PO Q6H PRN #12 tablet 05/16/23 - Allergies Allergies/Adverse Reactions: Allergies Allergy/AdvReac Type Severity Reaction Status Date / Time No Known Drug Allergies Allergy Verified 05/16/23 03:04 - Social History Does the pt smoke?: No Smoking Status: Never smoker Does the pt drink ETOH?: No Does the pt have substance abuse?: No - Immunizations Immunizations are current?: Yes - POLST Patient has POLST: No PD ED PE NORMAL - Vitals Vital signs reviewed: Yes - General General: Alert and oriented X 3, No acute distress, Well developed/nourished - HEENT HEENT: Atraumatic - Neck Neck: No bony TTP - Neuro Neuro: Alert and oriented X 3 PD ED PE EXPANDED - Extremities JENN UE/Hands Visual: 1 - swelling, tenderness 2 - swelling, tenderness Results - Vitals Vitals: Oxygen O2 Source Room air - Rads (name of study) left wrist xrays Relevant Findings:: Prelim report reviewed, See rad report PD Medical Decision Making - ED course Complexity details: reviewed results, re-evaluated patient, considered differential, d/w patient ED course: Despite significant swelling, erythema, and limited ROM left wrist, left wrist xrays are unremarkable; no evidence of acute bony injury including no evidence of fracture, dislocation. Splint and sling is placed. Results d/w patient, advised to follow up with PCP within 3-4 days. Given take-home pack of vicodin and e-prescribed same. Departure - Departure Disposition: 01 Home, Self Care Clinical Impression: Left wrist sprain Qualifiers: Encounter type: initial encounter Qualified Code(s): S63.502A - Unspecified sprain of left wrist, initial encounter Condition: Good Instructions: ED Sprain Wrist Prescriptions: HYDROcod/ACETAM 5/325 [[place] 5/325] 1 - 2 tablet PO Q6H PRN #12 tablet PRN Reason: Pain Comments: The x-rays of your left wrist do not show any evidence of an acute injury (such as fracture or dislocation). Based on the amount of pain you are having, and the significant swelling on the exam, I recommend that you contact your primary care provider when the office is next open to arrange for a follow-up appointment for reevaluation of the injury in the next 3 to 5 days. I electronically submitted a prescription for Vicodin (narcotic/opiate pain medication) to the [facility] pharmacy in [place]. I am prescribing a short course of narcotic pain medication for you. These are potentially dangerous and addictive medications that should be used carefully. These medications may constipate you. Take an exmc-cyg-wxvpdxw stool softener (docusate) twice daily with plenty of water while taking these medications. If you go 24 hours without a bowel movement, take [id number]-thp-tqgiwyy miralax, per package instructions. Do not drink or drive while taking these medications. If you received narcotic or sedating medications while in the emergency department, do not drive for 24 hours. Store this medication in a safe, secure place and out of reach of children. It is a violation of federal law to give or sell this medication to another person or to use in a manner other than prescribed. The ED will not refill narcotic prescriptions, including prescriptions lost or stolen. To dispose of unwanted medications: 1. [facility] at [address] in [place] has a medication drop box. They accept prescription medications (in pill form) Wednesday through Wednesday 9:00 a.m. to 5:00 p.m. 2. The [facility] [employer] accepts prescription medications (in pill form only) for disposal year round. Call for more information. 3. Contact the [facility] for the next [facility] sponsored prescription drug collection event. , [phone], or [phone]; Discharge Date/Time: 05/16/23 03:35
[2023-05-16] MEDS ORDERED: HYDROcod/ACET 5/325 Prepack 4 PO STA (03:15)
[2023-05-16 03:36] VITALS: BP 151/87; O2SAT 95
== END 2023-05-16 03:35 | disposition home or self-care (01) ==
LOC: ED 00:08
DX: S63.502A Unspecified sprain of left wrist, initial encounter (principal); W00.0XXA Fall on same level due to ice and snow, initial encounter; Y92.007 Garden or yard of unspecified non-institutional (private) residence as the place of occurrence of the external cause
CPT/HCPCS: 99283

== ENCOUNTER 2023-05-25 13:42 | Outpatient (CLI) | payer MEDICARE, OTHER ==
--- NOTE | 2023-05-25 16:15 | XRAY Report ---
PROCEDURE: Forearm LT INDICATIONS: LEFT WRIST PAIN TECHNIQUE: 2 views of the forearm were acquired. COMPARISON: None. FINDINGS: Bones: No fractures or dislocations. No suspicious bony lesions. Severe degenerative changes of the triscaphe joint. Moderate to severe degenerative changes of the first carpometacarpal joint. Soft tissues: No suspicious soft tissue calcifications or masses. IMPRESSION: Left radius/ulna without acute fracture or dislocation. Severe degenerative changes of the triscaphe joint. Moderate-severe degenerative changes of the first carpometacarpal joint. Reviewed by: Edison Shepherd MD on 05/25/2023 4:13 PM PST Approved by: Edison Shepherd MD on 05/25/2023 4:13 PM PST Station ID: [id number]
--- NOTE | 2023-05-25 16:17 | XRAY Report ---
PROCEDURE: Hand 1-2V LT INDICATIONS: LEFT WRIST PAIN TECHNIQUE: 3 views of the hand(s) acquired. COMPARISON: None. FINDINGS: Bones: Polyarticular degenerative changes of the left hand. There are degenerative changes involving the interphalangeal joints of the left hand most pronounced over the interphalangeal joint of the le ft thumb and the distal interphalangeal joints of the second through fifth fingers. No suspicious oss eous erosions. Moderate degenerative changes of the first carpometacarpal joint. Moderate to severe d egenerative changes of the first carpometacarpal joint. Severe degenerative changes of the triscaphe joint. Mild widening of the scapholunate interval measuring approximately 4 mm. No fractures or dislo cations. No suspicious bony lesions. Soft tissues: No suspicious soft tissue calcifications or masses. IMPRESSION: No acute bony abnormality. Polyarticular degenerative changes of the left hand and wrist as above. Severe degenerative changes of the triscaphe joint. Moderate degenerative changes of the first metaca rpophalangeal joint. Moderate-severe degenerative changes of the first carpometacarpal joint. Borderline widening of the scapholunate interval which may be related to sequela of prior ligamentous injury. Reviewed by: Edison Shepherd MD on 05/25/2023 4:16 PM PST Approved by: Edison Shepherd MD on 05/25/2023 4:16 PM PST Station ID: [id number]
--- NOTE | 2023-05-25 16:49 | XRAY Report ---
PROCEDURE: Ribs w/PA Chest 3+V RT INDICATIONS: THORACIC REGION BACK PAIN TECHNIQUE: 3 views of the ribs were acquired, along with a single view chest. COMPARISON: None. FINDINGS: Surgical changes and devices: Status post right shoulder arthroplasty. Bones and chest wall: No fractures or dislocations. No suspicious bony lesions. Overlying soft tis sues appear unremarkable. Lungs and pleura: No pleural effusions or pneumothorax. Lungs appear clear. Mediastinum: Mediastinal contours appear normal. Heart size is normal. IMPRESSION: No displaced rib fracture or pneumothorax. No acute cardiopulmonary abnormalities. Reviewed by: Edison Shepherd MD on 05/25/2023 4:48 PM PST Approved by: Edison Shepherd MD on 05/25/2023 4:48 PM PST Station ID: [id number]
--- NOTE | 2023-05-25 16:53 | XRAY Report ---
PROCEDURE: Wrist 3+V LT INDICATIONS: LEFT WRIST PAIN TECHNIQUE: 3 views of the wrist were acquired. COMPARISON: Left hand from same day and 05/16/2023. FINDINGS: Bones: No acute fractures or dislocations. No suspicious bony lesions. Moderate polyarticular degen erative changes of the left wrist similar to prior. No acute or subacute fracture identified. Borderl ine widening of the scapholunate interval measuring approximately 4 mm. Severe degenerative changes o f the triscaphe joint. Moderate-severe degenerative changes of the first carpometacarpal and thumb me tacarpophalangeal joint. No osseous erosions. Soft tissues: No suspicious soft tissue calcifications or masses. IMPRESSION: Left wrist without acute fracture. No reactive changes of subacute fracture healing. Redemonstration of moderate polyarticular background degenerative changes of the left breast most sev ere at the triscaphe joint. Borderline widening of the scapholunate interval which may be related to sequela of remote ligamentou s injury. If there is continued clinical concern for pathology or occult fracture, consider follow-up imaging w ith advanced imaging (CT, MRI) if symptoms persist. Reviewed by: Edison Shepherd MD on 05/25/2023 4:52 PM PST Approved by: Edison Shepherd MD on 05/25/2023 4:52 PM PST Station ID: [id number]
== END 2023-05-25 23:59 | disposition home or self-care (01) ==
LOC: DI.N 13:42
PROVIDERS: ATTEND Nurse Practitioner
DX: M54.6 Pain in thoracic spine (principal); M19.032 Primary osteoarthritis, left wrist; M18.12 Unilateral primary osteoarthritis of first carpometacarpal joint, left hand

== ENCOUNTER 2023-06-02 16:25 | Outpatient (CLI) | payer MEDICARE, OTHER ==
--- NOTE | 2023-06-02 18:16 | MRI Report ---
PROCEDURE: Brain WO INDICATIONS: MEMORY LOSS TECHNIQUE: Noncontrast axial T1 spin echo, axial T2 fast spin echo, sagittal and axial FLAIR, coronal T2 fast sp in echo, axial gradient echo, axial diffusion and ADC through the brain. COMPARISON: None. FINDINGS: Image quality: Excellent. CSF Spaces: Basal cisterns are patent. There is an arachnoid cyst seen along the posterior aspect o f the posterior fossa. Ventricles are normal in size and shape. Brain: No intracranial masses or hemorrhage. Camacho/white matter interface is normal. Brainstem appe ars normal. Diffusion-weighted images demonstrate no acute ischemic insult. No chronic ischemic ins ults. Normal intravascular flow voids are present. Generalized brain parenchymal volume loss can be seen, without abnormal regional volume loss. Minimal chronic small vessel ischemic change can be seen . Skull and face: Calvarium has normal marrow signal. Orbits appear normal. Sinuses: Sinuses and mastoids are clear. IMPRESSION: No significant abnormality is seen for age. Generalized brain parenchymal volume loss can be seen. Reviewed by: Robb Champion MD on 06/02/2023 5:15 PM [place] Approved by: Robb Champion MD on 06/02/2023 5:15 PM [facility] Station ID: [id number]
== END 2023-06-02 16:26 | disposition home or self-care (01) ==
LOC: DI 16:25
PROVIDERS: ATTEND Family Medicine
DX: R41.3 Other amnesia (principal); G31.89 Other specified degenerative diseases of nervous system

== ENCOUNTER 2023-06-23 14:37 | Outpatient (CLI) | payer MEDICARE, OTHER ==
--- NOTE | 2023-06-23 14:57 | Sleep Patient Instructions ---
Sleep Center Visit Summary - Patient Visit Information Reason for Visit: Sleep study followup - Patient Instructions Additional Instructions: Your sleep study today was negative for significant sleep disordered breathing. You were found to have episodes of snoring. There are different ways to control snoring including weight loss, oral devices made by a dentist or surgical options through ENT specialist. You should not use oral devices that do not fit properly because they can affect your bite. You should also check insurance coverage of oral devices for snoring because they may not be cover well. You may obtain a referral to an ENT specialist through your primary provider. Follow-up as needed. - Clinic Information Contact: [facility] [address] [place] [id number] [email or web address] T: [phone]
--- NOTE | 2023-06-23 14:59 | SLEEP CARE CONSULTATION ---
Information from patient questionnaire entered by Kera Mena. I have reviewed and concur with the information entered by Kera Mena. This document represents the service I personally performed and the decisions made by , Melissa Rockwell ARNP. History of Present Illness Service Date and Time: 06/23/2023 143 Initial [place] Sleepiness Scale score: 6 Current [place] Sleepiness Scale score: 8 (06/23/23) Additional HPI information: ARIELA HENDERSON returns for follow up and results of the recently performed polysomnography. The patient was informed of the following findings: No significant sleep disordered breathing with an average AHI of 1.9 and be oxygen saturation of 87%. He had no supine sleep and mild PLMs that did not contribute to sleep fragmentation. I explained the pathophysiology behind obstructive sleep apnea. Patient does not have sleep apnea and was advised how weight gain could increase the risk of developing sleep apnea in the future. I strongly encouraged the patient to lose weight. Patient has light snoring. Snoring can be reduced by weight loss. Weight loss is best achieved with diet consult. Patient instructed to contact PCP for referral. Snoring can also be treated with an oral appliance from a dentist. Advised to check insurance coverage. In addition, an ENT evaluation can be do to see if other treatment is indicated. Patient does not drink alcohol often. Patient was cautioned about risks of drowsy driving until sleepiness symptoms resolve. Patient denies drowsy driving. Sleep Study - Results Type of Sleep Study: Polysomnography (COMPLETED 04/23/23) Prior sleep studies: No Polysomnography/Home Sleep Study results: IMPRESSION: The quality of the study is good. The patient had reduced sleep efficiency due to sleep onset insomnia and a prolonged awakening in the middle of the night. The sleep architecture was relatively normal considering the first-night effect. Respiratory monitoring showed no significant sleep disordered breathing obstructive sleep apnea-hypopnea (AHI = 1.9) or hypoxia (be oxygen saturation of 87% only 1.3% to the total sleep time was spent with oxygen saturation below 90%). The patient did not sleep supine during this study (supine AHI = 0.0; non-supine = 1.92). Snore was infrequent and light in intensity. There was mild periodic leg movement of sleep not associated with sleep fragmentation. Cardiac rhythm was normal sinus rhythm without significant arrhythmia. No abnormal behavior (parasomnia) observed during the night. Allergies and Home Medications Known drug allergies: No Drug allergies reviewed: Yes Home medication list reviewed: Yes (amlodipine) Allergy and home medication list: Allergies No Known Drug Allergies Allergy (Verified 06/21/23 11:30) Home Medications Medication Instructions Recorded Confirmed Last Taken Type Multivitamin with Minerals 1 each PO DAILY 01/27/22 06/23/23 05/15/23 History [Multivitamins with Minerals] [place]-3/Dha/Epa/Fish Oil [Fish Oil 1 each PO DAILY 01/27/22 06/23/23 05/15/23 History 1,000 mg Softgel] Cholecalciferol (Vitamin D3) See Rx Instructions .ROUTE .COMPLEX 03/31/23 06/23/23 05/15/23 History [Vitamin D3] Cyanocobalamin (Vitamin B-12) See Rx Instructions .ROUTE .COMPLEX 03/31/23 06/23/23 05/15/23 History [Vitamin B12] Omeprazole See Rx Instructions .ROUTE .COMPLEX 03/31/23 06/23/23 05/15/23 History Terbinafine [Lamisil] See Rx Instructions .ROUTE .COMPLEX 03/31/23 06/23/23 05/15/23 History amLODIPine [Norvasc] See Rx Instructions .ROUTE .COMPLEX 03/31/23 06/23/23 05/15/23 History HYDROcod/ACETAM 5/325 [[place] 5/325] 1 - 2 tablet PO Q6H PRN #12 tablet 05/16/23 06/23/23 Unknown Rx Review of Systems Review of systems same as previous: No (VERTIGO) Physical Exam Vital signs obtained and entered by: KERA Samano MA Blood Pressure: 139/70 (LEFT ARM) Cuff size: regular Heart Rate: 72 O2 Saturation: 96 Height: 5 ft 10 in Weight: 193 lb 3.2 oz Body Mass Index: 27.7 BMI Classification: Overweight Impression and Plan 1. Periodic limb movement, mild, that did not fragment patients sleep. Periodic limb movement of sleep (PLMS) is characterized by episodes of repetitive limb movements that occur during sleep and usually involve the lower limbs. The etiology is unknown. Sleep hygiene methods can also improve sleep as well as lifestyle changes such as regular exercise. Patient was advised that no treatment is needed at this time. If symptoms increase, then further evaluation is indicated. 2. Snoring but no significant sleep disordered breathing. However, he did not sleep supine during study so sleep disordered breathing when sleeping supine cannot be eliminated. Patient advised that often weight loss will reduce snoring as well as apnea risk. An oral appliance can also be used for snoring. This would require a dental consultation. Patient cautioned not to use other online appliances as can cause bite issues. Patient is advised to check if insurance will cover. An ENT consult can also be helpful to determine if any other treatment is an option. 3. Overweight, unspecified. Currently patients BMI is 27.7. Obesity increases the risk of apnea, CPAP pressure requirements and overall health risks especially cardiovascular and diabetes. Thus patient is advised to lose weight. * Attempt to lose weight * Avoid alcohol consumption near bedtime * The patient is cautioned about driving until sleepiness is completely resolved. * Return as needed for follow up. Counseling Topics: Weight loss health impact Follow up with Sleep Care in: as needed Visit Type: In Office Time Spent with Patient (minutes): 14 Provider Statement: I spent 100% of the Face to Face Visit with the patient with greater than 50% spent counseling the patient and coordination of care.
[2023-06-23 15:01] VITALS: BP 139/70; O2SAT 96
== END 2023-06-23 14:38 | disposition home or self-care (01) ==
LOC: SC 14:37
PROVIDERS: ATTEND Nurse Practitioner Family
DX: G47.61 Periodic limb movement disorder (principal); R06.83 Snoring; E66.3 Overweight; Z68.27 Body mass index [BMI] 27.0-27.9, adult
CPT/HCPCS: 99212; G0463

== ENCOUNTER 2023-09-23 15:14 | Outpatient (CLI) | payer MEDICARE, OTHER ==
--- NOTE | 2023-09-23 20:11 | XRAY Report ---
PROCEDURE: Knee 4+V RT INDICATIONS: RIGHT KNEE PAIN TECHNIQUE: 4 views of the knee were acquired. COMPARISON: None. FINDINGS: Bones: No acute fractures or dislocations. No suspicious bony lesions. Very mild joint space narr owing is seen at the medial femorotibial compartment and patellofemoral compartment. Soft tissues: No knee joint effusion. No suspicious soft tissue calcifications. IMPRESSION: Minimal osteoarthrosis. Reviewed by: Efren Montilla MD on 09/23/2023 8:10 PM PDT Approved by: Efren Montilla MD on 09/23/2023 8:10 PM PDT Station ID: [id number]
== END 2023-09-23 15:15 | disposition home or self-care (01) ==
LOC: DI 15:14
PROVIDERS: ATTEND Nurse Practitioner
DX: M17.11 Unilateral primary osteoarthritis, right knee (principal)